=== PATIENT | male | born 1975 | race Caucasian/White ===

== ENCOUNTER 2022-05-27 05:01 | Emergency (ER) | payer MEDICAID ==
[~2022-05-27] VITALS: Ht 170.2 cm; Wt 68.2 kg
[2022-05-27 05:06] VITALS: BP 143/84
[2022-05-27] MEDS ORDERED: AMOX-117 PO (05:28)
== END 2022-05-27 05:47 | disposition home or self-care (01) ==
LOC: ER 05:02
DX: S81.852A Open bite, left lower leg, initial encounter; S01.85XA Open bite of other part of head, initial encounter; S01.05XA Open bite of scalp, initial encounter; W54.0XXA Bitten by dog, initial encounter; Y93.89 Activity, other specified; Y92.89 Other specified places as the place of occurrence of the external cause; Y99.8 Other external cause status
CPT/HCPCS: 99283; J7030; A6449